=== PATIENT | female | born 2000 | race African-American/Black ===

== ENCOUNTER 2019-06-30 11:19 | Emergency (ER) | payer MEDICARE, MEDICAID ==
[~2019-06-30] VITALS: Ht 154.9 cm; Wt 85.0 kg
[2019-06-30 12:00] VITALS: BP 143/78
[2019-06-30] MEDS: ACETAMINOPHEN 325MG TABLET PO ONE (12:57)
== END 2019-06-30 13:11 | disposition home or self-care (01) ==
LOC: ER 11:19
DX: M54.2 Cervicalgia (principal); M79.18 Myalgia, other site; V49.59XA Passenger injured in collision with other motor vehicles in traffic accident, initial encounter; Y93.89 Activity, other specified; Y92.89 Other specified places as the place of occurrence of the external cause; Y99.8 Other external cause status
CPT/HCPCS: 81025; 99283